=== PATIENT | female | born 1985 | race African-American/Black ===

== ENCOUNTER 2019-04-09 23:47 | Emergency (ER) | payer OTHER ==
--- NOTE | 2019-04-09 23:53 | PDOC ---
History of Present Illness - General Stated Complaint: ABDOMINAL PAIN Time Seen by Provider: 04/09/19 23:52 - History of Present Illness Initial Comments: 04/10/19 00:07 34 year old woman A2, 7 weeks 4 days who presents with sudden onset generalized abdominal pain rated 6/10 that woke her up from sleep and is associated with nausea. She denies any chest pain, shortness of breath, diarrhea , constipation, dysuria or hematuria. She has no other complaitns at bedside. ROS GENERAL/CONSTITUTIONAL: No fever or chills. No weakness. CARDIOVASCULAR: No chest pain or shortness of breath RESPIRATORY: No cough, wheezing, or hemoptysis. GASTROINTESTINAL: + nausea, No vomiting, diarrhea or constipation. GENITOURINARY: No dysuria, frequency, or change in urination. MUSCULOSKELETAL: No joint or muscle swelling or pain. No neck or back pain. SKIN: No rash PE GENERAL: Awake, alert, and fully oriented, in no acute distress HEAD: No signs of trauma, normocephalic, atraumatic EYES: EOMI, sclera anicteric, conjunctiva clear ENT: oropharynx clear without exudates. Moist mucosa NECK: Normal ROM, supple LUNGS: No distress, speaks full sentences, clear to auscultation bilaterally HEART: Regular rate and rhythm, normal S1 and S2, no murmurs, rubs or gallops, peripheral pulses normal and equal bilaterally. ABDOMEN: Soft, diffuse abdominal tenderness, normoactive bowel sounds. No guarding, no rebound. No masses EXTREMITIES : Normal inspection, Normal range of motion, no edema. No clubbing or cyanosis. NEUROLOGICAL: Cranial nerves II through XII grossly intact. Normal speech, no focal sensorimotor deficits SKIN: Warm, Dry, normal turgor, no rashes or lesions noted PELVIC: closed os, no blood in vaginal canal MDM DDX including but not limited to: r/o ectopic vs spont W/U: - cbc, cmp, beta,ua, ucx, tvus TX: - tylenol, zofran ED Course: labs largely wnl ekg nsr at 56bpm, non specific t wave abnorm, incomplete rbbb improved on reassessment TVUS single viable IUP d/c with pcp f/u Steph Gill, PGY2 Emergency Medicine Past History - Past Medical History Allergies/Adverse Reactions: Allergies Allergy/AdvReac Type Severity Reaction Status Date / Time No Known Allergies Allergy Verified 02/04/16 17:18 Home Medications: Ambulatory Orders 86/Iron/Folic/Dha/Epa [Nestabs Abc Combo Pk] 1 each PO DAILY 08/24/15 Polyethylene Glycol 3350 [Miralax (For Bowel Prep) -] 255 gm PO DAILY #1 btl Asthma: No Cancer: No Cardiac Disorders: No Diabetes: No HTN: No Seizures: No Thyroid Disease: No - Reproductive History (#): 4 Para: 0 Cervical CA: No Dysfunctional Uterine Bleeding: No Ectopic : No Endometrial CA: No Polycystic Ovaries: No Tubal Ligation: No Spontaneous : 3 - Psycho Social/Smoking Cessation Hx Smoking History: Never smoked Have you smoked in the past 12 months: No Hx Alcohol Use: No Drug/Substance Use Hx: No Substance Use Type: None Hx Substance Use Treatment: No ED Treatment Course - LABORATORY CBC & Chemistry Diagram: 04/10/19 00:30 04/10/19 00:30 Discharge - Discharge Information Problems reviewed: Yes Clinical Impression/Diagnosis: Abdominal pain, Condition: Stable Disposition: HOME - Admission No - Additional Discharge Information Prescriptions: Polyethylene Glycol 3350 [Miralax (For Bowel Prep) -] 255 gm PO DAILY #1 btl - Follow up/Referral Referrals: Priscila Otero DO [Staff Physician] - - Patient Discharge Instructions Patient Printed Discharge Instructions: DI for Abdominal Pain-Adult Additional Instructions: You were seen in the ED for abdominal pain Your labwork with largely unremarkable. No need for hospitalization at this time. Please see your OGYN within 1 week. You have a referral here if you need to see an OBGYN. Also see your Family Doctor in 1 week. Return to the ED if you have any worsening abdominal pain, vaginal bleeding, fever, nausea, vomiting or any other concerning symptoms. - Post Discharge Activity Work/Back to School Note: Back to Work
[2019-04-10] MEDS ORDERED: ACETAMINOPHEN 1000 MG/100 ML VIAL (NON FORMULARY) IVPB ONE (00:02)
[2019-04-10] MEDS ORDERED: ONDANSETRON 4 MG/2 ML VIAL IVPUSH ONE (00:02)
[2019-04-10 00:03] VITALS: BMI 32.3
[2019-04-10] MEDS ORDERED: SODIUM CHLORIDE 1,000 ML IV SCH (00:15)
[2019-04-10] MEDS ORDERED: ACETAMINOPHEN INJECTION 100 ML IVPB ONE (00:27)
[2019-04-10] MEDS ORDERED: ONDANSETRON 4 MG/2 ML VIAL ONE (00:27)
[2019-04-10 00:44] LABS: BASO % 0.7 % (0-2.0); EOS % 0.7 % (0-4.5); HEMATOCRIT 38.1 % (32.4-45.2); HEMOGLOBIN 12.2 GM/dL (10.7-15.3); LYMPH % 23.2 % (8-40); MCH 21.5 pg (25.7-33.7); MCHC 31.9 g/dl (32.0-36.0); MEAN CELL VOLUME 67.4 fl (80-96); MEAN PLT VOLUME 9.6 fl (7.5-11.1); MONO % 5.8 % (3.8-10.2); NEUT % 69.6 % (42.8-82.8); PLATELET COUNT 219 K/MM3 (134-434); RBC 5.65 M/mm3 (3.60-5.2); RDW 17.3 % (11.6-15.6); WHITE BLOOD COUNT 8.9 K/mm3 (4.0-10.0)
[2019-04-10 01:08] LABS: ALBUMIN 3.9 g/dl (3.4-5.0); BILIRUBIN,TOTAL 0.6 mg/dL (0.2-1); BLOOD UREA NITROGEN 5.8 mg/dL (7-18); CALCIUM 9.6 mg/dL (8.5-10.1); CREATININE 0.9 mg/dL (0.55-1.3); POTASSIUM 4.2 mmol/L (3.5-5.1); TOT PROT 7.8 g/dl (6.4-8.2)
[2019-04-10 01:34] LABS: EPI CELLS 15.1 /HPF (0-5/HPF); HYALINE CASTS 35 /lpf (0-8); PH,URINE 5.5 (5.0-8.0); URINE APPEARANCE CLOUDY; URINE BILIRUBIN NEGATIVE (NEGATIVE); URINE COLOR DK YELLOW; URINE GLUCOSE (UA) NEGATIVE (NEGATIVE); URINE KETONE 3+ (NEGATIVE); URINE LEUK ESTERASE TRACE (NEGATIVE); URINE NITRITE NEGATIVE (NEGATIVE); URINE PROTEIN TRACE (NEGATIVE); URINE RBC 3 /hpf (0-4); URINE WBC 13 /hpf (0-5)
[2019-04-10 02:08] VITALS: BP 131/67; PULSE 65; TEMP 98.4
--- NOTE | 2019-04-10 05:17 | PDOC ---
Documentation entered by Alexsander Covarrubias SCRIBE, acting as scribe for Beatriz Hernandez MD. Beatriz Hernandez MD: This documentation has been prepared by the Satish heard Nirvannie, SCRIBE, under my direction and personally reviewed by me in its entirety. I confirm that the documentation accurately reflects all work, treatment, procedures, and medical decision making performed by me. Attending Attestation - Resident Resident Name: Steph Gill - ED Attending Attestation I have performed the following: I have examined & evaluated the patient, The case was reviewed & discussed with the resident, I agree w/resident's findings & plan - HPI HPI: 04/10/19 00:25 The patient is a 34 year old 7 weeks female A2, with no significant past medical history, who presents to the emergency department with , sudden onset abdominal pain ranked a 6/10 with associated nausea. As per patient her pain awoke her from her slumber and is generalized in nature. She denies recent dysuria, frequency, urgency or hematuria. She denies recent chest pain or shortness of breath. Allergies: NKDA - Physicial Exam PE: 04/10/19 03:19 Pt has gassy abd pain. No rebound or guarding; pt states that she is constipated. Pt has no vag bleed; normal pelvic exam No flank pain. - Medical Decision Making 04/10/19 01:49 Pt's labs are normal. UA clear. Pt has appropriate bhcg 04/10/19 02:22 Patient Name: JER AWAN THIS IS A PRELIMINARY REPORT FROM [facility] DATE OF SERVICE: 2019-04-10 00:44:48 IMAGES: 28 EXAM: Obstetric ultrasound first trimester HISTORY: Ectopic versus torsion COMPARISON: None. FINDINGS: There is a single live intrauterine gestation with measurements corresponding to 8 weeks. heart rate is 154 bpm. A yolk sac is observed. Right ovary is normal size measuring 4.9 cm x 4.2 cm x 3.9 cm. There is a 2.6 cm right ovarian cyst as well as ovarian follicles There is positive Doppler blood flow/ waveforms to the right ovary. The left ovary could not be visualized due to overlying bowel gas. If left ovarian torsion or other left ovarian pathology is suspected, then further investigation will be necessary. Pt states that she has O Neg blood; but she has no vag bleeding. She knows that she needs rhogam at 28 weeks and at of her baby. We explained that she needs it also if she has bleeding or miscarriage 04/10/19 05:17 Pt is stable for d/c home
--- NOTE | 2019-04-10 10:30 | EKG ---
Test Reason : Blood Pressure : / mmHG Vent. Rate : 056 BPM Atrial Rate : 056 BPM P-R Int : 162 ms QRS Dur : 098 ms QT Int : 436 ms P-R-T Axes : 039 -03 000 degrees QTc Int : 420 ms SINUS BRADYCARDIA INCOMPLETE RIGHT BUNDLE BRANCH BLOCK NONSPECIFIC T WAVE ABNORMALITY ABNORMAL ECG NO PREVIOUS ECGS AVAILABLE Confirmed by MD DEE, BETI ([id number]) on 04/10/2019 10:30:34 AM Referred By: Confirmed By:BETI PRICE MD
== END 2019-04-10 03:29 | disposition home or self-care (01) ==
LOC: JER 23:47
PROC: 3E033NZ Introduction of Analgesics, Hypnotics, Sedatives into Peripheral Vein, Percutaneous Approach (ICD-10-PCS; principal; 2019-04-09)
PROC: 3E033GC Introduction of Other Therapeutic Substance into Peripheral Vein, Percutaneous Approach (ICD-10-PCS; 2019-04-09)
DX: O26.891 Other specified pregnancy related conditions, first trimester (principal); R10.9 Unspecified abdominal pain; Z3A.08 8 weeks gestation of pregnancy
CPT/HCPCS: 36415; 76817-TC; 80053; 81003; 83690; 84702; 85025; 87086; 93005; 93010; 96374; 96375; 99283-25; J0131; J7030

== ENCOUNTER 2019-06-13 08:24 | Emergency (ER) | payer OTHER ==
[2019-06-13 08:45] VITALS: BMI 40.3
[2019-06-13] MEDS ORDERED: IBUPROFEN 600 MG TABLET (FP) PO ONE (09:02)
--- NOTE | 2019-06-13 09:14 | PDOC ---
History of Present Illness - General History Source: Patient Exam Limitations: No Limitations - History of Present Illness Initial Comments: 06/13/19 09:10 34-year-old female presents the emergency room with complaints of cough body aches, and headache. Patient states son with similar symptoms. Patient has no other complaints at this time patient denies recent travel recent illness. Is this a multiple visit Asthma Patient?: No Timing/Duration: reports: yesterday Severity: reports: mild Associated Symptoms: reports: cough, fever/chills, headache, muscle aches <Lottie Trujillo - Last Filed: 06/13/19 09:50> <Rosalba Marcano - Last Filed: 06/13/19 10:02> - General Chief Complaint: Nausea/Vomiting Stated Complaint: FEVER/VOMITING Time Seen by Provider: 06/13/19 09:01 Past History - Travel Traveled outside of the country in the last 30 days: No Close contact w/someone who was outside of country & ill: No - Past Medical History Asthma: No Cancer: No Cardiac Disorders: No COPD: No Diabetes: No HTN: No Seizures: No Thyroid Disease: No - Reproductive History (#): 4 Para: 0 Cervical CA: No Dysfunctional Uterine Bleeding: No Ectopic : No Endometrial CA: No Polycystic Ovaries: No Tubal Ligation: No Spontaneous : 3 - Immunization History Immunization Up to Date: Yes - Psycho Social/Smoking Cessation Hx Smoking History: Never smoked Have you smoked in the past 12 months: No Hx Alcohol Use: No Drug/Substance Use Hx: No Substance Use Type: None Hx Substance Use Treatment: No Patient Lives Alone: No Lives with/in: spouse/SO <Lottie Trujillo - Last Filed: 06/13/19 09:50> <Rosalba Marcano - Last Filed: 06/13/19 10:02> - Past Medical History Allergies/Adverse Reactions: Allergies Allergy/AdvReac Type Severity Reaction Status Date / Time No Known Allergies Allergy Verified 06/13/19 08:38 Home Medications: Ambulatory Orders 86/Iron/Folic/Dha/Epa [Nestabs Abc Combo Pk] 1 each PO DAILY 08/24/15 Azithromycin 250 mg PO DAILY 06/13/19 Review of Systems - Review of Systems Able to Perform ROS?: Yes Constitutional: Yes: Fever HEENTM: Yes: See HPI Respiratory: Yes: Cough Cardiac (ROS): No: Symptoms Reported ABD/GI: No: Symptoms Reported : No: Symptoms Reported Musculoskeletal: Yes: Joint Pain, Muscle Pain Integumentary: No: Symptoms Reported Neurological: Yes: Headache Hematologic/Lymphatic: No: Symptoms Reported <Lottie Trujillo - Last Filed: 06/13/19 09:50> *Physical Exam - Vital Signs Last Vital Signs Temp Pulse Resp BP Pulse Ox 98.6 F 97 H 18 115/61 100 06/13/19 08:39 06/13/19 08:39 06/13/19 08:39 06/13/19 08:39 06/13/19 08:39 - Physical Exam General Appearance: Yes: Nourished, Appropriately Dressed. No: Apparent Distress HEENT: positive: EOMI, SUREKHA, TMs Normal, Pharynx Normal. negative: Pale Conjunctivae Neck: positive: Supple Respiratory/Chest: positive: Lungs Clear, Normal Breath Sounds. negative: Respiratory Distress, Accessory Muscle Use Cardiovascular: positive: Regular Rhythm, Regular Rate. negative: Murmur Gastrointestinal/Abdominal: positive: Soft. negative: Tenderness Extremity: positive: Normal Inspection Integumentary: positive: Normal Color, Warm, Moist Neurologic: positive: Motor Strength 5/5 (Ambulatory) <Lottie Trujillo - Last Filed: 06/13/19 09:50> - Vital Signs Last Vital Signs Temp Pulse Resp BP Pulse Ox 98.6 F 97 H 18 115/61 100 06/13/19 08:39 06/13/19 08:39 06/13/19 08:39 06/13/19 08:39 06/13/19 09:05 <Rosalba Marcano - Last Filed: 06/13/19 10:02> ED Treatment Course - Medications Given in the ED: ED Medications Discontinued Medications Generic Name Dose Route Start Last Admin Trade Name Freq PRN Reason Stop Dose Admin Acetaminophen 975 mg 06/13/19 09:18 06/13/19 09:15 Tylenol - PO 06/13/19 09:19 975 mg ONCE ONE Administration Ibuprofen 600 mg 06/13/19 09:02 06/13/19 09:26 Motrin - PO 06/13/19 09:03 Not Given ONCE ONE <Rosalba Marcano - Last Filed: 06/13/19 10:02> Medical Decision Making - Medical Decision Making 06/13/19 09:13 Chief complaint: URI symptoms. Nothing taken. Similar symptoms with son. exam: Vital signs stable lungs clear to auscultation. No abnormal findings Plan: Influenza swab along with Motrin. 06/13/19 09:50 Influenza swab negative. Will discharge home with supportive care instructions <Lottie Trujillo - Last Filed: 06/13/19 09:50> - Medical Decision Making The patient was seen and evaluated in conjunction with midlevel provider under my direct supervision, ancillary studies were reviewed. I agree with the plan as outlined with CRISTIANO Trujillo. HPI, workup/dispo as outlined. VS reviewed, wnl. flu neg. supportive care/URI sx anticipate discharge, pcp followup, return precautions 06/13/19 10:01 06/13/19 10:01 <Rosalba Marcano - Last Filed: 06/13/19 10:02> Discharge - Discharge Information Problems reviewed: Yes <Lottie Trujillo - Last Filed: 06/13/19 09:50> <Rosalba Marcano - Last Filed: 06/13/19 10:02> - Discharge Information Clinical Impression/Diagnosis: URI (upper respiratory infection) Condition: Good Disposition: HOME - Patient Discharge Instructions Patient Printed Discharge Instructions: DI for Viral Upper Respiratory Infection -- Adult Additional Instructions: Drink plenty of fluids and take Tylenol extra strength every 6-8 hours for adequate pain control. Rest. - Post Discharge Activity Work/Back to School Note: Back to Work
[2019-06-13] MEDS ORDERED: ACETAMINOPHEN 500 MG TABLET (FP) PO ONE (09:18)
[2019-06-13] MEDS ORDERED: ACETAMINOPHEN 325 MG TABLET (FP) ONE (09:19)
[2019-06-13 10:14] VITALS: BP 111/65; PULSE 80; TEMP 98.2
== END 2019-06-13 10:10 | disposition home or self-care (01) ==
LOC: JER 08:24
DX: J06.9 Acute upper respiratory infection, unspecified (principal); B97.89 Other viral agents as the cause of diseases classified elsewhere
CPT/HCPCS: 87804; 99282-25

== ENCOUNTER 2022-06-23 14:41 | Emergency (ER) | payer OTHER ==
[2022-06-23 15:45] VITALS: BP 123/81; PULSE 83; RESP 20; TEMP 99.3; BMI 32.3
== END 2022-06-23 19:22 | disposition home or self-care (01) ==
LOC: JER 14:41
DX: J06.9 Acute upper respiratory infection, unspecified (principal)
CPT/HCPCS: 0241U-QW; 99283-25

== ENCOUNTER 2022-11-27 10:21 | Emergency (ER) | payer OTHER ==
[2022-11-27 10:27] VITALS: RESP 18; BMI 41.1
[2022-11-27] MEDS ORDERED: IBUPROFEN 400 MG TABLET (FP) PO ONE ×2 (11:17→11:53)
[2022-11-27 12:17] LABS: EPI CELLS >36 /uL (0-25.1); HYALINE CASTS 8 /uL (0-3.1); URINE APPEARANCE CLOUDY; URINE BACTERIA 504 /uL (0-1359); URINE BILIRUBIN NEGATIVE (NEGATIVE); URINE COLOR YELLOW; URINE GLUCOSE (UA) NEGATIVE (NEGATIVE); URINE KETONE 1+ (NEGATIVE); URINE LEUK ESTERASE 1+ (NEGATIVE); URINE NITRITE NEGATIVE (NEGATIVE); URINE PROTEIN 2+ (NEGATIVE); URINE WBC 85 /uL (0-25.8)
[2022-11-27 12:22] LABS: HEMATOCRIT 36.1 % (32.4-45.2); HEMOGLOBIN 11.2 GM/dL (10.7-15.3); MEAN CELL VOLUME 64.5 fl (80-96); MEAN PLT VOLUME 9.3 fl (7.5-11.1); PLATELET COUNT 151 10^3/uL (134-434); RDW 17.3 % (11.6-15.6); WHITE BLOOD COUNT 2.5 K/mm3 (4.0-10.0)
[2022-11-27 13:36] LABS: URINE RBC 28 /uL (0-23.9)
[2022-11-27 14:18] LABS: POTASSIUM 3.3 mmol/L (3.5-5.1)
[2022-11-27 14:20] LABS: ALBUMIN 3.1 g/dl (3.4-5.0); CALCIUM 8.7 mg/dL (8.5-10.1)
[2022-11-27 14:21] LABS: BLOOD UREA NITROGEN 7.2 mg/dL (7-18)
[2022-11-27 14:22] LABS: ANISOCYTOSIS 2+; MACROCYTOSIS 0; OVALOCYTE 2+; TEAR DROP CELLS 1+
[2022-11-27 14:23] LABS: CREATININE 0.7 mg/dL (0.55-1.3)
[2022-11-27 14:25] LABS: BILIRUBIN,TOTAL 0.2 mg/dL (0.2-1); TOT PROT 6.6 g/dl (6.4-8.2)
[2022-11-27 14:39] VITALS: BP 148/79; PULSE 61; TEMP 98.5
== END 2022-11-27 16:49 | disposition home or self-care (01) ==
LOC: JER 10:21
DX: N39.0 Urinary tract infection, site not specified (principal); D72.819 Decreased white blood cell count, unspecified; R53.1 Weakness; M79.10 Myalgia, unspecified site; R10.30 Lower abdominal pain, unspecified; R32 Unspecified urinary incontinence; R11.0 Nausea; R68.83 Chills (without fever); Z20.822 Contact with and (suspected) exposure to COVID-19
CPT/HCPCS: 0241U-QW; 36415; 74176-TC; 80053; 81003; 82962; 83690; 84703; 85025; 87086; 99284-25

== ENCOUNTER 2023-12-26 02:04 | Emergency (ER) | payer OTHER ==
[2023-12-26 02:22] VITALS: BMI 39.5
[2023-12-26] MEDS ORDERED: ONDANSETRON 4 MG/2 ML VIAL ONE (03:00)
[2023-12-26] MEDS ORDERED: ACETAMINOPHEN INJECTION 100 ML IVPB ONE (03:00)
[2023-12-26] MEDS ORDERED: FAMOTIDINE 20 MG/50 ML IVPB 20 MG/50 ML MG IVPB ONE (03:00)
[2023-12-26] MEDS: SODIUM CHLORIDE 0.9% 500 ML INFUS.BAG IV ONE (03:19)
[2023-12-26] MEDS: ACETAMINOPHEN 1000 MG/100 ML BAG IVPB ONE (03:19)
[2023-12-26] MEDS: FAMOTIDINE 20 MG/50 ML IVPB 20 MG/50 ML MG IVPB ONE (03:20)
[2023-12-26] MEDS: ONDANSETRON 4 MG/2 ML VIAL IVPUSH ONE (03:20)
[2023-12-26 03:48] LABS: BASO % 0.9 % (0-2.0); EOS % 1.2 % (0-4.5); HEMATOCRIT 35.7 % (32.4-45.2); HEMOGLOBIN 11.6 GM/dL (10.7-15.3); LYMPH % 18.4 % (8-40); MCH 21.6 pg (25.7-33.7); MCHC 32.6 g/dl (32.0-36.0); MEAN CELL VOLUME 66.4 fl (80-96); MEAN PLT VOLUME 8.7 fl (7.5-11.1); MONO % 8.9 % (3.8-10.2); NEUT % 70.6 % (42.8-82.8); PLATELET COUNT 241 10^3/uL (134-434); RBC 5.38 M/mm3 (3.60-5.2); RDW 17.8 % (11.6-15.6); WHITE BLOOD COUNT 6.8 K/mm3 (4.0-10.0)
[2023-12-26 04:05] LABS: POTASSIUM 3.1 mmol/L (3.5-5.1)
[2023-12-26 04:07] LABS: ALBUMIN 3.5 g/dl (3.4-5.0); BLOOD UREA NITROGEN 7.3 mg/dL (7-18); CALCIUM 8.9 mg/dL (8.5-10.1)
[2023-12-26 04:10] LABS: CREATININE 0.7 mg/dL (0.55-1.3)
[2023-12-26 04:12] LABS: BILIRUBIN,TOTAL 0.4 mg/dL (0.2-1); TOT PROT 6.9 g/dl (6.4-8.2)
[2023-12-26 05:36] LABS: ANISOCYTOSIS 0; MACROCYTOSIS 0
[2023-12-26] MEDS ORDERED: POTASSIUM CHLORIDE ORAL LIQUID 20 MEQ/15 ML ONE (06:07)
[2023-12-26] MEDS ORDERED: MAGNESIUM SULFATE IN WATER 2 GM/50 ML IVPB IVPB ONE (06:07)
[2023-12-26 06:30] VITALS: BP 151/82; PULSE 68; RESP 21; TEMP 98.5
[2023-12-26] MEDS: POTASSIUM CHLORIDE ORAL LIQUID 20 MEQ/15 ML PO ONE (06:34)
[2023-12-26] MEDS: MAGNESIUM SULF 50% (8.12 MEQ/2 ML-1 GM VIAL) IVPB ONE (06:34)
== END 2023-12-26 07:27 | disposition home or self-care (01) ==
LOC: JER 02:04
PROC: 3E033GC Introduction of Other Therapeutic Substance into Peripheral Vein, Percutaneous Approach (ICD-10-PCS; principal; 2023-12-26)
PROC: 3E033NZ Introduction of Analgesics, Hypnotics, Sedatives into Peripheral Vein, Percutaneous Approach (ICD-10-PCS; 2023-12-26)
PROC: 3E033GC Introduction of Other Therapeutic Substance into Peripheral Vein, Percutaneous Approach (ICD-10-PCS; 2023-12-26)
PROC: 3E033GC Introduction of Other Therapeutic Substance into Peripheral Vein, Percutaneous Approach (ICD-10-PCS; 2023-12-26)
DX: R07.89 Other chest pain (principal); R11.2 Nausea with vomiting, unspecified
CPT/HCPCS: 36415; 80053; 83690; 84484; 84703; 85025; 93005; 93010; 99284-25; J0131